=== PATIENT | female | born 1940 | race Caucasian/White ===

== ENCOUNTER 2019-11-18 14:52 | Inpatient (IN) | payer MEDICARE ==
[~2019-11-18] VITALS: Ht 165.1 cm; Wt 93.8 kg
--- NOTE | 2019-11-18 15:25 | NUR ---
Patient brought to ER room 9. She states she has had increased shortness of breath x 3 weeks and has had to sleep sitting up in a recliner at home. She states she has been checking her oxygen saturations at night and they have been running around 68%. She does not wear oxygen at home. She denies any exposures to covid. She states she has not left her house in over 3 weeks.
[2019-11-18] MEDS ORDERED: NS IV 500 ML 500 ML IV ONE (15:32)
[2019-11-18 15:45] LABS: BASOPHILS % (AUTO) 0 % (0-10); EOSINOPHILS # (AUTO) 0.3 10^3/uL (0.0-0.3); EOSINOPHILS % (AUTO) 4 % (0-10); HEMATOCRIT 40 % (35-52); HEMOGLOBIN 13.3 G/DL (11.5-16.0); LYMPHOCYTES % (AUTO) 13 % (12-44); MEAN CORPUSCULAR HEMOGLOBIN 31 PG (25-34); MEAN CORPUSCULAR HGB CONC 33 G/DL (32-36); MEAN CORPUSCULAR VOLUME 93 FL (80-99); MEAN PLATELET VOLUME 9.5 FL (7.4-10.4); MONOCYTES % (AUTO) 13 % (0-12); NEUTROPHILS # (AUTO) 5.5 X 10^3 (1.8-7.8); NEUTROPHILS % (AUTO) 70 % (42-75); PLATELET COUNT 220 10^3/uL (130-400); RED CELL DISTRIBUTION WIDTH 15.1 % (10.0-14.5); WHITE BLOOD COUNT 7.9 10^3/uL (4.3-11.0)
[2019-11-18 15:51] LABS: ALBUMIN 3.9 GM/DL (3.2-4.5); CHLORIDE 104 MMOL/L (98-107); POTASSIUM 3.7 MMOL/L (3.6-5.0); SODIUM 139 MMOL/L (135-145)
--- NOTE | 2019-11-18 15:51 | NUR ---
Patient's oxygen saturation initially was 74% on room air. Patient placed on 4 LPM via NC and oxygen saturation is now 98%.
[2019-11-18 15:52] LABS: CALCIUM 9.2 MG/DL (8.5-10.1)
[2019-11-18 15:53] LABS: GLUCOSE 122 MG/DL (70-105); TOTAL PROTEIN 7.4 GM/DL (6.4-8.2)
[2019-11-18] MEDS ORDERED: methylPREDNISolone 125 MG (Solu-MEDROL) VIAL IV STA (15:53)
[2019-11-18 15:54] LABS: CARBON DIOXIDE 23 MMOL/L (21-32); FIBRIN DEGRADATION PRODUCTS 0.87 UG/ML (0.00-0.49)
[2019-11-18 15:55] LABS: BILIRUBIN,TOTAL 1.1 MG/DL (0.1-1.0)
[2019-11-18 15:56] LABS: ALKALINE PHOSPHATASE 92 U/L (40-136)
[2019-11-18 15:57] LABS: CREATININE SERUM 0.82 MG/DL (0.60-1.30); GFR ESTIMATED > 60
[2019-11-18 15:58] LABS: BUN/CREATININE RATIO 16
[2019-11-18] MEDS ORDERED: RT-ALBUTEROL INHALER HFA (VENTOLIN HFA) 18 GM IH ONE (15:59)
[2019-11-18 16:00] LABS: ALANINE AMINOTRANSFERASE 13 U/L (0-55)
--- NOTE | 2019-11-18 16:29 | Diagnostic Imaging Report ---
INDICATION: Short of air. EXAMINATION: Upright portable chest was obtained. FINDINGS: Right upper lobe infiltrate. There may be a left lung infiltrate present as well. There is cardiomegaly with no failure. There is no effusion. A pacemaker is present. IMPRESSION: Bilateral infiltrates consistent with pneumonia. Recommend follow-up. Dictated by: Dictated on workstation # [id number]
[2019-11-18 17:42] LABS: BILIRUBIN,URINE NEGATIVE (NEGATIVE); CLARITY,URINE CLOUDY; COLOR,URINE YELLOW; GLUCOSE, URINE (UA) NEGATIVE (NEGATIVE); KETONES,URINE NEGATIVE (NEGATIVE); LEUKOCYTE ESTERASE ,URINE 1+ (NEGATIVE); NITRITE,URINE POSITIVE (NEGATIVE); PROTEIN,URINE 1+ (NEGATIVE)
[2019-11-18] MEDS ORDERED: CEFEPIME INJECTION 1,000 MG in WATER (STERILE) FOR INJECTION 10 ML IV ONE (17:45)
[2019-11-18] MEDS ORDERED: VANCOMYCIN INJECTION 1,000 MG in NS (IVPB) 250 ML IV ONE (17:45)
[2019-11-18 17:49] LABS: BACTERIA,URINE LARGE /HPF; WBC,URINE 25-50 /HPF
--- NOTE | 2019-11-18 17:51 | ED General ---
General Chief Complaint: Respiratory Problems Stated Complaint: SOB Nursing Triage Note: pt has copd checks o2 sats at home has been 70-80's recently with increased shortness of air and has to sleep sitting up. o2 81% on room air on arrival. onset aprox 1.5 2 weeks with increased soa last few day. Nursing Sepsis Screen: No Definite Risk Source of Information: Patient Exam Limitations: No Limitations History of Present Illness Date Seen by Provider: Nov 18, 2019 Time Seen by Provider: 15:25 Initial Comments Here with report of shortness of air home and worsening. States started 1-2 weeks ago and worsened over the last couple of days. Does have history of bronchiectasis and has history of pneumonia at least twice a year secondary to that. Moved here in August has not set up care with pulmonology. She is working on transferring care to Dr. Valdez who her sister sees. Has been using her inhalers and breathing treatments at home but not getting better. She is not currently on home O2. Was in the low 80s for O2 sat on arrival. States that she's been in the 70s and 80% range at home except for when she is sitting up. Denies nausea, vomiting or diarrhea. No contact with [employer] that she knows of and has stayed at home and not been out in the community due to concerns because of her lung disease. Timing/Duration: 1 Week, Getting Worse Severity: Moderate, Severe Associated Systoms: No Chest Pain; Cough, Fever/Chills; No Nausea/Vomiting; Shortness of Air, Weakness Allergies and Home Medications Allergies Coded Allergies: Rpelcln-Ced-Zkn Reductase Inhibitor (Verified Allergy, Unknown, 11/18/19) doxycycline (Verified Allergy, Unknown, 11/18/19) Patient Home Medication List Home Medication List Reviewed: Yes Review of Systems Review of Systems Constitutional: see HPI; No chills; fever, weakness EENTM: no symptoms reported Respiratory: cough, short of breath Cardiovascular: no symptoms reported Gastrointestinal: No abdominal pain, No nausea, No vomiting Genitourinary: no symptoms reported Musculoskeletal: no symptoms reported All Other Systems Reviewed Negative Unless Noted: Yes Past Pnrdcre-Athgdu-Sxjqlj Hx Past Med/Social Hx: Reviewed Nursing Past Med/Soc Hx Patient Social History Alcohol Use: Denies Use Recreational Drug Use: No Smoking Status: Unknown if Ever Smoked 2nd Hand Smoke Exposure: No Recent Foreign Travel: No Contact w/Someone Who Travel: No Recent Infectious Disease Expo: No Recent Hopitalizations: No Physical Abuse: No Sexual Abuse: No Mistreated: No Fear: No Seasonal Allergies Seasonal Allergies: No Past Medical History Surgeries: Yes (6 stents in heart, 2 stents in leg, pacemaker) Coronary Stent Respiratory: Yes Asthma, COPD Cardiac: Yes Coronary Artery Disease, High Cholesterol, Hypertension, Peripheral Vascular Neurological: No : No Genitourinary: No Gastrointestinal: No Musculoskeletal: No Endocrine: No HEENT: No Cancer: No Psychosocial: No Integumentary: No Family Medical History Reviewed Nursing Family Hx No Pertinent Family Hx Physical Exam-Suspected Sepsis Physical Exam Vital Signs Vital Signs - First Documented 11/18/19 11/18/19 11/18/19 15:15 15:25 15:29 Temp 37.2 Pulse 80 Resp 22 B/P (MAP) 175/77 (109) Pulse Ox 81 O2 Delivery Room Air O2 Flow Rate 4.00 Capillary Refill : Less Than 3 Seconds Blood Pressure Mean: 109 Height, Weight, BMI Height: '" Weight: lbs. oz. kg; BMI Method: General Appearance: No Apparent Distress, WD/WN HEENT: PERRL/EOMI, Pharynx Normal Neck: Non Tender, Supple Respiratory: Crackles (throughout but greater on the right than left), Wheezing (few with expiration) Cardiovascular: Regular Rate, Rhythm, No Murmur Gastrointestinal: Non Tender, Soft Back: Normal Inspection, No CVA Tenderness, No Vertebral Tenderness Extremity: Normal Range of Motion, Non Tender, No Calf Tenderness Neurologic/Psychiatric: Alert, Oriented x3, No Motor/Sensory Deficits Skin: normal color, warm/dry Focused Exam Lactate Level 11/18/19 15:31: Lactic Acid Level 0.73 Lactic Acid Level Laboratory Tests Test 11/18/19 15:31 Lactic Acid Level 0.73 MMOL/L (0.50-2.00) Progress/Results/Core Measures Suspected Sepsis Recent Fever Within 48 Hours: No Infection Criteria Present: None New/Unexplained Altered Menta: No Sepsis Screen: No Definite Risk SIRS Temperature: Pulse: 80 Respiratory Rate: 22 Laboratory Tests 11/18/19 15:31: White Blood Count 7.9 Blood Pressure 175 /77 Mean: 109 11/18/19 15:31: Lactic Acid Level 0.73 Laboratory Tests 11/18/19 15:31: Creatinine 0.82, INR Comment 1.0, Platelet Count 220, Total Bilirubin 1.1H Results/Orders Lab Results Laboratory Tests Test 11/18/19 15:31 11/18/19 17:36 Range/Units White Blood Count 7.9 4.3-11.0 10^3/uL Red Blood Count 4.34 L 4.35-5.85 10^6/uL Hemoglobin 13.3 11.5-16.0 G/DL Hematocrit 40 35-52 % Mean Corpuscular Volume 93 80-99 FL Mean Corpuscular Hemoglobin 31 25-34 PG Mean Corpuscular Hemoglobin Concent 33 32-36 G/DL Red Cell Distribution Width 15.1 H 10.0-14.5 % Platelet Count 220 130-400 10^3/uL Mean Platelet Volume 9.5 7.4-10.4 FL Neutrophils (%) (Auto) 70 42-75 % Lymphocytes (%) (Auto) 13 12-44 % Monocytes (%) (Auto) 13 H 0-12 % Eosinophils (%) (Auto) 4 0-10 % Basophils (%) (Auto) 0 0-10 % Neutrophils # (Auto) 5.5 1.8-7.8 X 10^3 Lymphocytes # (Auto) 1.0 1.0-4.0 X 10^3 Monocytes # (Auto) 1.0 0.0-1.0 X 10^3 Eosinophils # (Auto) 0.3 0.0-0.3 10^3/uL Basophils # (Auto) 0.0 0.0-0.1 10^3/uL Prothrombin Time 14.0 12.2-14.7 SEC INR Comment 1.0 0.8-1.4 Activated Partial Thromboplast Time 32 24-35 SEC D-Dimer 0.87 H 0.00-0.49 UG/ML Sodium Level 139 135-145 MMOL/L Potassium Level 3.7 3.6-5.0 MMOL/L Chloride Level 104 98-107 MMOL/L Carbon Dioxide Level 23 21-32 MMOL/L Anion Gap 12 5-14 MMOL/L Blood Urea Nitrogen 13 7-18 MG/DL Creatinine 0.82 0.60-1.30 MG/DL Estimat Glomerular Filtration Rate > 60 BUN/Creatinine Ratio 16 Glucose Level 122 H 70-105 MG/DL Lactic Acid Level 0.73 0.50-2.00 MMOL/L Calcium Level 9.2 8.5-10.1 MG/DL Corrected Calcium 9.3 8.5-10.1 MG/DL Total Bilirubin 1.1 H 0.1-1.0 MG/DL Aspartate Amino Transf (AST/SGOT) 22 5-34 U/L Alanine Aminotransferase (ALT/SGPT) 13 0-55 U/L Alkaline Phosphatase 92 40-136 U/L Troponin I < 0.028 <0.028 NG/ML Total Protein 7.4 6.4-8.2 GM/DL Albumin 3.9 3.2-4.5 GM/DL Urine Color YELLOW Urine Clarity CLOUDY Urine pH 6.0 5-9 Urine Specific Pearson 1.020 1.016-1.022 Urine Protein 1+ H NEGATIVE Urine Glucose (UA) NEGATIVE NEGATIVE Urine Ketones NEGATIVE NEGATIVE Urine Nitrite POSITIVE H NEGATIVE Urine Bilirubin NEGATIVE NEGATIVE Urine Urobilinogen 1.0 < = 1.0 MG/DL Urine Leukocyte Esterase 1+ H NEGATIVE Urine RBC (Auto) NEGATIVE NEGATIVE Urine RBC NONE /HPF Urine WBC 25-50 H /HPF Urine Squamous Epithelial Cells 5-10 /HPF Urine Crystals NONE /LPF Urine Bacteria LARGE H /HPF Urine Casts NONE /LPF Urine Mucus NEGATIVE /LPF Urine Culture Indicated CULTURE PENDING My Orders Orders - YASMIN ABDULLAHI MD Cbc With Automated Diff (11/18/19 15:32) Comprehensive Metabolic Panel (11/18/19 15:32) Blood Culture (11/18/19 15:32) Sputum Culture (11/18/19 15:32) Urinalysis (11/18/19 15:32) Urine Culture (11/18/19 15:32) Protime With Inr (11/18/19 15:32) Partial Thromboplastin Time (11/18/19 15:32) Chest 1 View, Ap/Pa Only (11/18/19 15:32) Ed Iv/Invasive Line Start (11/18/19 15:32) Ed Iv/Invasive Line Start (11/18/19 15:32) Ekg Tracing (11/18/19 15:32) Troponin I (11/18/19 15:32) Vital Signs Adult Sepsis Patie Q15M (11/18/19 15:32) O2 (11/18/19 15:32) Remove Rings In Anticipation O (11/18/19 15:32) Lactic Acid Analyzer (11/18/19 15:32) Ns Iv 500 Ml (Sodium Chloride 0.9%) (11/18/19 15:32) Fibrin Degradation Products (11/18/19 15:32) Methylprednisolone Sod Succ (Solu-Medrol (11/18/19 15:53) Albuterol Inhaler (Ventolin Hfa) (11/18/19 15:59) Cefepime Injection (Maxipime Injection) (11/18/19 17:45) Vancomycin Injection (Vancomycin Injecti (11/18/19 17:45) Medications Given in ED Current Medications Medications Dose Ordered Sig/Cheryl Route Start Time Stop Time Status Last Admin Dose Admin Albuterol Sulfate 18 gm STK-MED ONCE IH 11/18/19 15:59 11/18/19 16:03 DC 11/18/19 16:06 1 GM Cefepime HCl 1000 mg/Sterile Water 10 ml @ 200 mls/hr ONCE ONCE IV 11/18/19 17:45 11/18/19 17:47 DC 11/18/19 17:51 200 MLS/HR Sodium Chloride 500 ml @ 0 mls/hr Q0M ONCE IV 11/18/19 15:32 11/18/19 15:35 DC 11/18/19 15:56 1,000 MLS/HR Vital Signs/I&O 11/18/19 11/18/19 11/18/19 11/18/19 15:15 15:25 15:29 16:07 Temp 37.2 37.2 Pulse 80 80 Resp 22 22 B/P (MAP) 175/77 (109) Pulse Ox 81 98 96 O2 Delivery Room Air Nasal Cannula Nasal Cannula O2 Flow Rate 4.00 2.00 Capillary Refill : Less Than 3 Seconds Blood Pressure Mean: 109 Progress Note : Progress Note Seen and evaluated. Sepsis order set initiated. Normal saline 500 mL bolus. Solu-Medrol 125 mg IV given long history ordered as well as albuterol MDI multiple puffs. This did help along with the oxygen. Monitor patient. 1735: Bilateral pneumonia noted. X-ray. I did discuss all this with the patient. Patient to be admitted and patient agrees. I did discuss the case with Dr. Garcia and she agrees to admission, inpatient status. We will consult Dr. Valdez in the morning. Cefepime 1 g IV and vancomycin 1750 mg IV ordered and we will continue sepsis order set. Patient agrees with plan. ECG Initial ECG Impression Date: Nov 18, 2019 Initial ECG Impression Time: 15:43 Initial ECG Rate: 72 Initial ECG Rhythm: Normal Sinus Comment Sinus rhythm with LVH. No evidence of ST elevation OK. Leftward axis. No previous available for comparison. Interpreted by me. Diagnostic Imaging Diagonstic Imaging: Xray Plain Films/CT/US/NM/MRI: chest Comments [facility] [place], [place] NAME: DONALD PLASENCIA [facility] REC#: [id number] PT STATUS: REG ER : 1940 PHYSICIAN: YASMIN ABDULLAHI MD ADMIT DATE: 11/18/19/ER Signed Date of Exam:11/18/19 CHEST 1 VIEW, AP/PA ONLY INDICATION: Short of air. EXAMINATION: Upright portable chest was obtained. FINDINGS: Right upper lobe infiltrate. There may be a left lung infiltrate present as well. There is cardiomegaly with no failure. There is no effusion. A pacemaker is present. IMPRESSION: Bilateral infiltrates consistent with pneumonia. Recommend follow-up. Dictated by: Dictated on workstation # [id number] Dict: 11/18/19 1625 Trans: 11/18/19 1631 [facility] [id number] Interpreted by: SANDY SCHOFIELD MD Electronically signed by: SANDY SCHOFIELD MD 11/18/19 1631 Departure Communication (Admissions) Time/Spoke to Admitting Phy: 17:35 Impression Primary Impression: Bilateral pneumonia Qualified Codes: J18.9 - Pneumonia, unspecified organism Additional Impression: Bronchiectasis Qualified Codes: J47.1 - Bronchiectasis with (acute) exacerbation Disposition: ADMITTED INPATIENT Condition: Stable Admissions Decision to Admit Reason: Admit from ER (General) Decision to Admit/Date: Nov 18, 2019 Time/Decision to Admit Time: 17:35 YASMIN ABDULLAHI MD Nov 18, 2019 17:50
--- NOTE | 2019-11-18 18:23 | NUR ---
Attempted to call [facility] to give report. No answer. Will try back in a little bit.
[2019-11-18 18:52] VITALS: BP 169/81
--- NOTE | 2019-11-18 19:00 | NUR ---
DONALD LUIS ANGEL admitted to room 423-1, with an admitting diagnosis of BILATERAL PNEUMONIA AND BRONCHIECTASIS, on 11/18/19 from [facility] via W/C, accompanied by ED STAFF. DONADL PLASENCIA introduced to surroundings, call light, bed controls, phone, TV, temperature control, lights, meal times, smoking policy, visitor policy, side rail policy, bathrooms and showers. Patient Rights given to patient in the handbook. DONALD PLASENCIA verbalizes understanding that [facility] is not responsible for the loss or damage to any personal effects or valuables that are kept in the patients possession during their hospitalization. Patient was informed about the Rapid Response Team and its purpose.
[2019-11-18 20:22] VITALS: BP 169/81
[2019-11-18] MEDS ORDERED: CARVEDILOL 3.125 MG (COREG) TABLET PO ONE (22:30)
[2019-11-18] MEDS ORDERED: lisINopril 20 MG (PRINIVIL) TABLET PO ONE (22:30)
[2019-11-18 23:40] VITALS: BP 153/76
[2019-11-18] MEDS: methylPREDNISolone 40 MG/ML (Solu-MEDROL) VIAL IV SCH (23:40)
[2019-11-19] MEDS ORDERED: RT-ALBUINH IH (00:55)
[2019-11-19] MEDS ORDERED: ACET325T49 PO (00:55)
[2019-11-19] MEDS ORDERED: ALBU2.5V4 INH (00:58)
[2019-11-19] MEDS ORDERED: CARV25TA PO (01:23)
[2019-11-19] MEDS ORDERED: DILT360C36 PO (01:23)
[2019-11-19] MEDS ORDERED: ASPI-983 PO (01:23)
[2019-11-19] MEDS ORDERED: BUDE0.5A IH (01:23)
[2019-11-19] MEDS ORDERED: CLON0.1T PO (01:23)
[2019-11-19] MEDS ORDERED: NITR0.4T42 SL (01:23)
[2019-11-19] MEDS ORDERED: MULT-928 PO (01:23)
[2019-11-19] MEDS ORDERED: LISI-552 PO (01:23)
[2019-11-19] MEDS ORDERED: ISOS30TA3 PO (01:23)
[2019-11-19] MEDS ORDERED: CLOP75TA28 PO (01:23)
[2019-11-19] MEDS ORDERED: MULT-974 PO (01:23)
[2019-11-19] MEDS ORDERED: OMEP20TA7 PO (01:23)
[2019-11-19] MEDS ORDERED: ARFO15VI3 IH (01:23)
[2019-11-19] MEDS ORDERED: FURO40TA4 PO (01:23)
[2019-11-19 04:00] VITALS: BP 167/77
[2019-11-19] MEDS: CEFEPIME 1,000 MG/SWFI 10 ML IV PUSH IV SCH ×8 (04:44→22:21)
[2019-11-19 05:53] LABS: BASOPHILS % (AUTO) 0 % (0-10); EOSINOPHILS % (AUTO) 0 % (0-10); HEMATOCRIT 39 % (35-52); HEMOGLOBIN 12.9 G/DL (11.5-16.0); LYMPHOCYTES # (AUTO) 0.3 X 10^3 (1.0-4.0); LYMPHOCYTES % (AUTO) 8 % (12-44); MEAN CORPUSCULAR HEMOGLOBIN 30 PG (25-34); MEAN CORPUSCULAR HGB CONC 33 G/DL (32-36); MEAN CORPUSCULAR VOLUME 93 FL (80-99); MEAN PLATELET VOLUME 9.8 FL (7.4-10.4); MONOCYTES % (AUTO) 1 % (0-12); NEUTROPHILS # (AUTO) 3.7 X 10^3 (1.8-7.8); NEUTROPHILS % (AUTO) 92 % (42-75); PLATELET COUNT 185 10^3/uL (130-400); RED CELL DISTRIBUTION WIDTH 14.6 % (10.0-14.5)
[2019-11-19 06:13] LABS: ALANINE AMINOTRANSFERASE 13 U/L (0-55); ALBUMIN 3.6 GM/DL (3.2-4.5); ALKALINE PHOSPHATASE 83 U/L (40-136); BILIRUBIN,TOTAL 0.8 MG/DL (0.1-1.0); BUN/CREATININE RATIO 18; CALCIUM 9.3 MG/DL (8.5-10.1); CARBON DIOXIDE 24 MMOL/L (21-32); CHLORIDE 107 MMOL/L (98-107); CREATININE SERUM 0.74 MG/DL (0.60-1.30); GFR ESTIMATED > 60; GLUCOSE 165 MG/DL (70-105); POTASSIUM 3.9 MMOL/L (3.6-5.0); SODIUM 140 MMOL/L (135-145); TOTAL PROTEIN 6.9 GM/DL (6.4-8.2)
[2019-11-19 06:22] LABS: ANISOCYTOSIS SLIGHT; LYMPHOCYTES % (MANUAL) 8 %; NEUTROPHILS % (MANUAL) 92 %
[2019-11-19] MEDS: methylPREDNISolone 40 MG/ML (Solu-MEDROL) VIAL IV SCH ×3 (06:37→17:55)
[2019-11-19 08:00] VITALS: BP 155/88
[2019-11-19] MEDS ORDERED: VANCOMYCIN 1250 MG/NS 250 ML IVPB IV SCH ×2 (09:00)
[2019-11-19] MEDS: CARVEDILOL 12.5 MG (COREG) TABLET PO SCH ×2 (09:24→21:17)
[2019-11-19] MEDS: lisINopril 20 MG (PRINIVIL) TABLET PO SCH ×2 (09:24→21:17)
[2019-11-19] MEDS ORDERED: ACETAMINOPHEN 325 MG TABLET PO PRN (10:30)
[2019-11-19] MEDS ORDERED: NITROGLYCERIN 0.4 MG SL TABS BTL 25'S SL PRN (10:30)
[2019-11-19] MEDS ORDERED: cloNIDine 0.1 MG (CATAPRES) TAB PO PRN (10:30)
--- NOTE | 2019-11-19 10:37 | History & Physical-Hospitalist ---
History of Present Illness HPI/Chief Complaint Pt is an 79yoCF with a PMH of bronchiectasis, HTN, complete heart block s/p pacemaker, HTN who presented to the ER due to dyspnea on exertion. She states she has a long history of lung problems which she follows with a bicycle repairman in [facility]. She moved to [facility] in August. She states for the past 2-3 weeks she's had increasing shortness of breath and dyspnea on exertion. She states when she walks out to get the mail her oxygen saturations will drop down to the 60s. she has also developed some orthopnea and has needed to sleep in her recliner. Wednesday night she developed a cough and had been using her inhalers 4 times a day. She was planning to come to the emergency room yesterday morning but the story. She came in the afternoon and was found to have a pulse ox of 81 percent on arrival that dropped to 74 with walking to the ER room. She was found to have bilateral pneumonia and was admitted for IV abx due to hypoxia. She was also found to have a UTI. She has not been febrile and she has no sick contacts. Source: patient Date Seen 11/19/19 Time Seen by a Provider: 10:32 Attending Physician Renetta Garcia MD PCP Referring Physician Date of Admission Nov 18, 2019 at 17:41 Home Medications & Allergies Home Medications Reviewed patient Home Medication Reconciliation performed by pharmacy medication reconciliations clean room technician and/or nursing. Patients Allergies have been reviewed. Allergies Allergies Coded Allergies Grdoozw-Sql-Rut Reductase Inhibitor (Verified Allergy, Unknown, 11/18/19) doxycycline (Verified Allergy, Unknown, 11/18/19) Past Buefijs-Tpbxjg-Succzh Hx Past Med/Social Hx: Reviewed Nursing Past Med/Soc Hx Patient Social History Alcohol Use: Denies Use Recreational Drug Use: No Smoking Status: Unknown if Ever Smoked 2nd Hand Smoke Exposure: No Recent Foreign Travel: No Contact w/other who traveled: No Recent Hopitalizations: No Recent Infectious Disease Expo: No Immunizations Up To Date Date of Pneumonia Vaccine: Mar 22, 2018 Seasonal Allergies Seasonal Allergies: No Past Medical History Surgeries: Coronary Stent, Orthopedic CEA x2 bronchiectasis Cardiac: Coronary Artery Disease, High Cholesterol, Hypertension, Peripheral Vascular : No Family History Reviewed Nursing Family Hx No Pertinent Family Hx Review of Systems Constitutional: No chills, No fever Respiratory: cough, dyspnea on exertion, orthopnea Cardiovascular: No chest pain, No edema, No palpitations Gastrointestinal: No abdominal pain, No constipation, No diarrhea, No nausea, No vomiting Genitourinary: No dysuria; frequency, other (foul odor) Musculoskeletal: no symptoms reported Skin: no symptoms reported Psychiatric/Neurological: No Symptoms Reported Physical Exam Physical Exam Vital Signs Vital Signs - First Documented 11/18/19 11/18/19 11/18/19 15:15 15:25 15:29 Temp 37.2 Pulse 80 Resp 22 B/P (MAP) 175/77 (109) Pulse Ox 81 O2 Delivery Room Air O2 Flow Rate 4.00 Capillary Refill : Less Than 3 Seconds Height, Weight, BMI Height: '" Weight: lbs. oz. kg; 34.41 BMI Method: General Appearance: No Apparent Distress, WD/WN, Obese HEENT: PERRL/EOMI, Moist Mucous Membranes; No Scleral Icterus (L), No Scleral Icterus (R) Neck: Normal Inspection, Supple Respiratory: No Accessory Muscle Use, Decreased Breath Sounds; No Wheezing; Other (on 3lpm NC) Cardiovascular: Regular Rate, Rhythm, No Murmur Gastrointestinal: Normal Bowel Sounds, Non Tender, Soft Extremity: Normal Capillary Refill, No Calf Tenderness, No Pedal Edema Neurologic/Psychiatric: Alert, Oriented x3, Normal Mood/Affect Skin: Normal Color, Warm/Dry Results Results/Procedures Labs Laboratory Tests 11/18/19 15:31 11/19/19 05:10 11/19/19 05:30 Patient resulted labs reviewed. Imaging: Reviewed Imaging Report Imaging [facility], [place] NAME: DONALD PLASENCIA [facility] REC#: [id number] PT STATUS: REG ER : 1940 PHYSICIAN: YASMIN ABDULLAHI MD ADMIT DATE: 11/18/19/ER Signed Date of Exam:11/18/19 CHEST 1 VIEW, AP/PA ONLY INDICATION: Short of air. EXAMINATION: Upright portable chest was obtained. FINDINGS: Right upper lobe infiltrate. There may be a left lung infiltrate present as well. There is cardiomegaly with no failure. There is no effusion. A pacemaker is present. IMPRESSION: Bilateral infiltrates consistent with pneumonia. Recommend follow-up. Dictated by: Dictated on workstation # [id number] Dict: 11/18/19 1625 Trans: 11/18/19 1631 [facility] [id number] Interpreted by: SANDY SCHOFIELD MD Electronically signed by: SANDY SCHOFIELD MD 11/18/19 1631 Assessment/Plan Admission Diagnosis Acute hypoxic respiratory failure Bilateral PNA Bronchiectasis Not sepsis Continue on Vanc and Cefepime Can likely deescalate Vanc tomorrow Continue home pulm meds Continue Solu-medrol Echo ordered due to history of orthopnea UTI On abx as above Await cultures (e coli growing, sensitivities not available) CAD HTN CEA Continue home medications DVT ppx: Lovenox Clinical Quality Measures DVT/VTE Risk/Contraindication: Risk Factor Score Per Nursin RFS Level Per Nursing on Admit: 4+=Very High RENETTA GRACIA MD Nov 19, 2019 10:37
[2019-11-19] MEDS: ALBUTEROL/IPRATROP (COMBIVENT RESPIMAT) 4 GM INHALER IH SCH ×3 (11:01→21:10)
[2019-11-19] MEDS: ADVAIR HFA 115/21 MCG INHALER 8 GM IH SCH ×2 (11:01→21:59)
[2019-11-19 12:00] VITALS: BP 160/76
[2019-11-19] MEDS ORDERED: ARFORMOTEROL 15 MCG/2 ML (BROVANA) INH SOLUTIION IH SCH (13:00)
[2019-11-19] MEDS: ARFORMOTEROL 15 MCG/2 ML (BROVANA) INH SOLUTIION IH SCH ×2 (14:51→21:35)
[2019-11-19 15:30] VITALS: BP 194/81
--- NOTE | 2019-11-19 16:00 | NUR ---
B/P 194/81. CATAPRES 0.1 PO ORDERED FOR ELEVATED B/P.
[2019-11-19] MEDS: ENOXAPARIN 40 MG/0.4 ML (LOVENOX) SYR SQ SCH (16:05)
[2019-11-19 20:00] VITALS: BP 178/80
[2019-11-20] MEDS: methylPREDNISolone 40 MG/ML (Solu-MEDROL) VIAL IV SCH ×3 (00:02→11:07)
[2019-11-20] MEDS: ALBUTEROL/IPRATROP (COMBIVENT RESPIMAT) 4 GM INHALER IH SCH ×5 (00:33→21:56)
[2019-11-20 00:37] VITALS: BP 154/74
[2019-11-20] MEDS: CEFEPIME 1,000 MG/SWFI 10 ML IV PUSH IV SCH ×4 (04:27→09:38)
[2019-11-20 04:31] VITALS: BP 158/82
--- NOTE | 2019-11-20 07:30 | Pulmonary Consultation ---
History of Present Illness History of Present Illness Date Seen by Provider: Nov 20, 2019 Time Seen by Provider: 07:25 Date of Admission Allergies and Home Medications Allergies Coded Allergies: doxycycline (Verified Allergy, Unknown, 11/18/19) Zjxpvxo-Qls-Frm Reductase Inhibitor (Verified Adverse Reaction, Severe, myalgias, 11/19/19) Home Medications Acetaminophen 325 Mg Tablet, 650 MG PO Q6H PRN for PAIN-MILD (1-4), (Reported) Albuterol Sulfate 1 Puff Puff, 2 PUFF IH Q6H PRN for WHEEZING, (Reported) 1 PUFF = 90 MCG Albuterol Sulfate 2.5 Mg/3 Ml Vial.neb, 2.5 MG INH Q6H PRN for WHEEZING, (Reported) Arformoterol Tartrate 15 Mcg/2 Ml Vial.neb, 15 MCG IH QID, (Reported) Aspirin 81 Mg Tablet.dr, 81 MG PO DAILY, (Reported) Budesonide 0.5 Mg/2 Ml Ampul.neb, 0.5 MG IH BID, (Reported) Carvedilol 25 Mg Tablet, 25 MG PO BID, (Reported) Clonidine HCl 0.1 Mg Tablet, 0.1 MG PO NEEDED PRN for BLOOD PRESSURE, (Reported) Clopidogrel Bisulfate 75 Mg Tablet, 75 MG PO DAILY, (Reported) Diltiazem HCl 360 Mg Cap.er.24h, 420 MG PO DAILY, (Reported) Furosemide 40 Mg Tablet, 40 MG PO DAILY PRN, (Reported) Isosorbide Mononitrate 30 Mg Tab.er.24h, 90 MG PO DAILY, (Reported) Lisinopril 20 Mg Tablet, 20 MG PO BID, (Reported) Multivitamin 1 Each Tablet, 1 TAB PO DAILY, (Reported) Multivits,Stress Formula/Zinc 1 Each Tablet, 1 TAB PO DAILY, (Reported) Nitroglycerin 0.4 Mg Tab.subl, 0.4 MG SL PRN PRN for CHEST PAIN (ANGINA), (R eported) Omeprazole 20 Mg Tablet.dr, 20 MG PO DAILY, (Reported) Past Ddownbl-Jwoyts-Jsuwlx Hx Past Med/Social Hx: Reviewed Nursing Past Med/Soc Hx Patient Social History Alcohol Use: Denies Use Recreational Drug Use: No Smoking Status: Unknown if Ever Smoked 2nd Hand Smoke Exposure: No Recent Foreign Travel: No Contact w/Someone Who Travel: No Recent Infectious Disease Expo: No Recent Hopitalizations: No Physical Abuse: No Sexual Abuse: No Mistreated: No Fear: No Immunizations Up To Date Date of Pneumonia Vaccine: Mar 22, 2018 Seasonal Allergies Seasonal Allergies: No Past Medical History Surgeries: Yes (6 stents in heart, 2 stents in leg, pacemaker) Coronary Stent, Orthopedic Respiratory: Yes Asthma, COPD Cardiac: Yes Coronary Artery Disease, High Cholesterol, Hypertension, Peripheral Vascular Neurological: No : No Genitourinary: No Gastrointestinal: No Musculoskeletal: No Endocrine: No HEENT: No Cancer: No Psychosocial: No Integumentary: No Family Medical History Reviewed Nursing Family Hx No Pertinent Family Hx Sepsis Event Evaluation Height, Weight, BMI Height: '" Weight: lbs. oz. kg; 34.41 BMI Method: Exam Exam Vital Signs Date Time Temp Pulse Resp B/P (MAP) Pulse Ox O2 Delivery O2 Flow Rate FiO2 11/20/19 04:31 36.2 75 20 158/82 (107) 96 Nasal Cannula 3.00 11/20/19 00:37 36.2 79 20 154/74 (100) 95 Nasal Cannula 3.00 11/20/19 00:33 92 Nasal Cannula 3.00 11/19/19 21:59 92 Nasal Cannula 3.00 11/19/19 20:00 94 Nasal Cannula 3.00 11/19/19 20:00 36.0 80 20 178/80 (112) 96 Nasal Cannula 3.00 11/19/19 15:30 36.6 82 18 194/81 (118) 96 Nasal Cannula 3.00 11/19/19 14:56 95 Nasal Cannula 3.00 11/19/19 14:55 95 Nasal Cannula 3.00 11/19/19 12:00 35.9 83 20 160/76 (104) 92 Nasal Cannula 3.00 11/19/19 11:02 95 Nasal Cannula 3.00 11/19/19 11:01 95 Nasal Cannula 3.00 11/19/19 08:00 35.8 79 20 155/88 (110) 94 Nasal Cannula 3.00 11/19/19 08:00 92 Nasal Cannula 3.00 I & O 11/20/19 07:00 Intake Total 1912.5 ml Balance 1912.5 ml Height & Weight Height: '" Weight: lbs. oz. kg; 34.41 BMI Method: General Appearance: No Apparent Distress, WD/WN, Obese HEENT: PERRL/EOMI, Moist Mucous Membranes; No Scleral Icterus (L), No Scleral Icterus (R) Neck: Normal Inspection, Supple Respiratory: No Accessory Muscle Use, Decreased Breath Sounds; No Wheezing; Other (on 3lpm NC) Cardiovascular: Regular Rate, Rhythm, No Murmur Capillary Refill: Less Than 3 Seconds Extremity: Normal Capillary Refill, No Calf Tenderness, No Pedal Edema Neurologic/Psychiatric: Alert, Oriented x3, Normal Mood/Affect Skin: Normal Color, Warm/Dry Results Lab Laboratory Tests 11/18/19 15:31 11/19/19 05:10 11/19/19 05:30 Assessment/Plan Assessment/Plan Acute hypoxic respiratory failure -Repeat CXR and labs -Check Echo Bilateral PNA - Vanc and Cefepime -D/C Vanco Bronchiectasis Solu-medrol -SVNs -Out pt PFT UTI with Ecoli Continue Abx CAD HTN JACQUELINE DALLAS DO Nov 20, 2019 07:30
[2019-11-20 08:00] VITALS: BP 180/89
[2019-11-20] MEDS: lisINopril 20 MG (PRINIVIL) TABLET PO SCH ×2 (08:10→21:24)
[2019-11-20] MEDS: PANTOPRAZOLE 20 MG TABLET (PROTONIX) PO SCH (08:10)
[2019-11-20] MEDS: ASPIRIN E.C. 81 MG (ECOTRIN) TAB PO SCH (08:10)
[2019-11-20] MEDS: CARVEDILOL 12.5 MG (COREG) TABLET PO SCH ×2 (08:10→21:24)
[2019-11-20] MEDS: CLOPIDOGREL 75 MG (PLAVIX) TABLET PO SCH (08:11)
[2019-11-20] MEDS: ISOSORBIDE MONONITRATE 30 MG (IMDUR) TAB PO SCH (08:11)
[2019-11-20] MEDS: MULTIVIT W/MINERALS TAB (THERAGRAN M) PO SCH (08:11)
[2019-11-20] MEDS: dilTIAZem120 MG (CARDIZEM CD) CAP PO SCH (08:11)
[2019-11-20] MEDS: FUROSEMIDE 40 MG (LASIX) TAB PO SCH (08:11)
[2019-11-20 09:00] LABS: BASOPHILS % (AUTO) 0 % (0-10); EOSINOPHILS % (AUTO) 0 % (0-10); HEMATOCRIT 41 % (35-52); HEMOGLOBIN 13.1 G/DL (11.5-16.0); LYMPHOCYTES # (AUTO) 0.3 X 10^3 (1.0-4.0); LYMPHOCYTES % (AUTO) 3 % (12-44); MEAN CORPUSCULAR HEMOGLOBIN 30 PG (25-34); MEAN CORPUSCULAR HGB CONC 32 G/DL (32-36); MEAN CORPUSCULAR VOLUME 93 FL (80-99); MEAN PLATELET VOLUME 9.7 FL (7.4-10.4); MONOCYTES # (AUTO) 0.3 X 10^3 (0.0-1.0); MONOCYTES % (AUTO) 3 % (0-12); NEUTROPHILS # (AUTO) 11.7 X 10^3 (1.8-7.8); NEUTROPHILS % (AUTO) 95 % (42-75); PLATELET COUNT 203 10^3/uL (130-400); RED CELL DISTRIBUTION WIDTH 14.9 % (10.0-14.5); WHITE BLOOD COUNT 12.4 10^3/uL (4.3-11.0)
[2019-11-20] MEDS ORDERED: DILTIAZEM HCL 420 MG PO SCH (09:00)
[2019-11-20 09:12] LABS: ALBUMIN 3.6 GM/DL (3.2-4.5)
[2019-11-20 09:13] LABS: POTASSIUM 3.4 MMOL/L (3.6-5.0)
[2019-11-20 09:14] LABS: CALCIUM 8.7 MG/DL (8.5-10.1)
[2019-11-20 09:15] LABS: TOTAL PROTEIN 6.8 GM/DL (6.4-8.2)
--- NOTE | 2019-11-20 09:15 | Diagnostic Imaging Report ---
Single view chest. INDICATION: Shortness of breath. Comparison made with prior examination of 11/18/2019. FINDINGS: There is cardiomegaly. There is right perihilar pneumonia. Some venous congestion. Pacemaker overlies left hemithorax. No pneumothorax. IMPRESSION: Persistent right upper lobe and right perihilar pneumonia. Cardiomegaly and mild central pulmonary venous congestion. Dictated by: Dictated on workstation # [id number]
[2019-11-20 09:17] LABS: BILIRUBIN,TOTAL 0.5 MG/DL (0.1-1.0)
[2019-11-20 09:19] LABS: CREATININE SERUM 0.9 MG/DL (0.60-1.30)
[2019-11-20] MEDS ORDERED: SOD CHL GEL 0.5 OZ (AYR SALINE NASAL GEL) TUBE TOP PRN (10:00)
[2019-11-20] MEDS: ADVAIR HFA 115/21 MCG INHALER 8 GM IH SCH ×2 (10:15→19:54)
[2019-11-20] MEDS ORDERED: CEFDINIR 300 MG (OMNICEF) CAP PO ONE (11:30)
[2019-11-20 12:08] VITALS: BP 143/80
[2019-11-20] MEDS ORDERED: BUDE0.5A7 IH (12:43)
[2019-11-20] MEDS ORDERED: OMEP20CA18 PO (12:43)
[2019-11-20] MEDS ORDERED: [UNRECOGNIZED DRUG - CODE] PO (12:43)
[2019-11-20] MEDS ORDERED: OMEP20TA7 PO (12:43)
[2019-11-20] MEDS ORDERED: CARV12.53 PO (12:44)
--- NOTE | 2019-11-20 12:50 | NUR ---
I SPOKE WITH THE PATIENT, KRISTINE MAYERS IN [place], AND WENT THROUGH HER MED LIST THAT SHE BROUGHT FROM HOME TO HELP ME COMPLETE THIS MED REC. PATIENT SAID THAT SHE GETS PROAIR, PROVENTIL NEBS, BROVANA NEBS, AND PULMICORT NEBS FROM [facility]. PATIENT DOESN'T HAVE ANY CONTACT INFORMATION AND I WAS UNABLE TO GET INTO CONTACT WITH THEM. THIS IS WHY I AM UNABLE TO PROVIDE FILLED DATES. PATIENT STATES THAT SHE TAKES CARVEDILOL 25MG BID BUT I COULD NOT FIND ANY RECORD OF HER GETTING THAT PRESCRIPTION FROM ANY PHARMACY SHE PROVIDED. THE LAST TIME [facility] FILLED COREG WAS 12/30/2018 #180 90DS BUT IT WAS ONLY A 12.5MG. SHE SAID THAT HER DAUGHTER IS GOING TO BRING HER MEDICATIONS EITHER LATER TODAY OR TOMORROW AND IF SHE HAS HER 25MG CARVEDILOL BOTTLE WE WILL CHANGE THE MED REC ACCORDINGLY. FLAXSEED, FUROSEMIDE, POTASSIUM, TERAZOSIN AND KENALOG CREAM ARE ALL ON HER MED LIST IN HER CHART THAT SHE PROVIDED FROM HOME, BUT SHE SAYS THAT SHE IS NO LONGER TAKING THEM. CLONIDINE 0.1MG LAST FILLED 07/26/2019 #90 45DS NITROGLYCERIN TABLETS LAST FILLED 06/16/2019 #25 30DS OTC: ACETAMINOPHEN ASPIRIN MULTI-VITAMIN B COMPLEX
[2019-11-20] MEDS ORDERED: CEFD300C3 PO (13:14)
[2019-11-20] MEDS: ENOXAPARIN 40 MG/0.4 ML (LOVENOX) SYR SQ SCH (14:56)
[2019-11-20 15:30] VITALS: BP 135/81
--- NOTE | 2019-11-20 16:48 | NUR ---
PATIENT SAT ON ROOM AIR WAS 87 PATIENT PLACED BACK ON OXYGEN AND SAT CAME UP TO 94% RECOMMENDS 3 L/M OXYGEN CAUTIOUS Addendum: 11/20/19 at 1648 by ROSA MONTESINOS RT Amended: Links added.
[2019-11-20 20:00] VITALS: BP 169/79
--- NOTE | 2019-11-20 20:35 | Progress Note - Hospitalist ---
Subjective HPI/CC On Admission Date Seen by Provider: Nov 20, 2019 Time Seen by Provider: 09:20 Pt is an 79yoCF with a PMH of bronchiectasis, HTN, complete heart block s/p pacemaker, HTN who presented to the ER due to dyspnea on exertion. She states she has a long history of lung problems which she follows with a roller [facility] in [facility]. She moved to [facility] in August. She states for the past 2-3 weeks she's had increasing shortness of breath and dyspnea on exertion. She states when she walks out to get the mail her oxygen saturations will drop down to the 60s. she has also developed some orthopnea and has needed to sleep in her recliner. Wednesday night she developed a cough and had been using her inhalers 4 times a day. She was planning to come to the emergency room yesterday morning but the story. She came in the afternoon and was found to have a pulse ox of 81 percent on arrival that dropped to 74 with walking to the ER room. She was found to have bilateral pneumonia and was admitted for IV abx due to hypoxia. She was also found to have a UTI. She has not been febrile and she has no sick contacts. Subjective/Events-last exam she reports feeling better today. She still has a cough. She is still is producing sputum. She denies any fevers or chills. She denies any abdominal pain, nausea, or vomiting. She denies any chest pain. Focused Exam Lactate Level Objective Exam Vital Signs Vital Signs Date Time Temp Pulse Resp B/P (MAP) Pulse Ox O2 Delivery O2 Flow Rate FiO2 11/21/19 14:20 36.0 64 16 133/76 95 Nasal Cannula 11/21/19 12:00 3.00 Capillary Refill : Less Than 3 SecondsLess Than 3 Seconds General Appearance: No Apparent Distress, Obese Respiratory: Lungs Clear, Normal Breath Sounds, No Respiratory Distress Cardiovascular: Regular Rate, Rhythm, No Edema, No Murmur Gastrointestinal: Normal Bowel Sounds, Non Tender, Soft Extremity: Normal Inspection, Non Tender, No Pedal Edema Neurologic/Psychiatric: Alert, Oriented x3, No Motor/Sensory Deficits, Normal Mood/Affect Skin: Normal Color, Warm/Dry Results/Procedures Lab Patient resulted labs reviewed. Imaging: Reviewed Imaging Report Assessment/Plan Assessment and Plan Assess & Plan/Chief Complaint Acute hypoxic respiratory failure Bilateral PNA Bronchiectasis transition to Omnicef Continue home pulm meds transition to prednisone UTI continue Omnicef CAD HTN CEA Continue home medications DVT ppx: Lovenox Diagnosis/Problems Diagnosis/Problems (1) Acute and chronic respiratory failure with hypoxia Status: Acute (2) Pneumonia Status: Acute Qualifiers: Pneumonia type: due to unspecified organism Laterality: unspecified laterality Lung location: unspecified part of lung Qualified Codes: J18.9 - Pneumonia, unspecified organism (3) Bronchiectasis Status: Acute Qualifiers: Bronchiectasis type: with acute exacerbation Qualified Codes: J47.1 - Bronchiectasis with (acute) exacerbation Clinical Quality Measures DVT/VTE Risk/Contraindication: Risk Factor Score Per Nursin RFS Level Per Nursing on Admit: 4+=Very High MIKE MCDOWELL MD Nov 20, 2019 20:35
[2019-11-20] MEDS: CEFDINIR 300 MG (OMNICEF) CAP PO SCH (21:24)
[2019-11-21] VITALS: BP 159/70
[2019-11-21 04:00] VITALS: BP 129/64
[2019-11-21 05:16] VITALS: BP 129/64
[2019-11-21] MEDS ORDERED: KCL 20 MEQ TAB (K-DUR) PO NR (07:00)
[2019-11-21] MEDS ORDERED: predniSONE 20 MG TAB PO SCH (07:00)
--- NOTE | 2019-11-21 07:05 | Pulmonary Progress Note ---
Subjective Time Seen by a Provider: 07:01 Subjective/Events-last exam Pt appears to be doing better. Sepsis Event Evaluation Height, Weight, BMI Height: '" Weight: lbs. oz. kg; 34.41 BMI Method: Focused Exam Lactate Level 11/18/19 15:31: Lactic Acid Level 0.73 Exam Exam Vital Signs Date Time Temp Pulse Resp B/P (MAP) Pulse Ox O2 Delivery O2 Flow Rate FiO2 11/21/19 05:16 36.6 66 18 129/64 (85) 94 Nasal Cannula 3.00 11/21/19 04:00 36.6 66 14 129/64 (85) 94 Nasal Cannula 3.00 11/21/19 00:00 36.2 69 14 159/70 (99) 97 Nasal Cannula 3.00 11/20/19 21:57 91 Nasal Cannula 3.00 11/20/19 21:31 95 Nasal Cannula 3.00 11/20/19 20:00 36.5 63 18 169/79 (109) 95 Nasal Cannula 3.00 11/20/19 19:45 Nasal Cannula 3.00 11/20/19 16:47 93 3.00 11/20/19 15:30 36.5 62 18 135/81 (99) 95 Nasal Cannula 3.00 11/20/19 14:00 94 Nasal Cannula 3.00 11/20/19 12:08 36.8 67 20 143/80 (101) 93 Nasal Cannula 3.00 11/20/19 10:29 94 Nasal Cannula 3.00 11/20/19 10:29 94 Nasal Cannula 3.00 11/20/19 08:00 96 Nasal Cannula 3.00 11/20/19 08:00 36.2 84 20 180/89 (119) 96 Nasal Cannula 3.00 I & O 11/21/19 07:00 Intake Total 3165 ml Balance 3165 ml Height & Weight Height: '" Weight: lbs. oz. kg; 34.41 BMI Method: General Appearance: No Apparent Distress, WD/WN, Obese HEENT: PERRL/EOMI, Moist Mucous Membranes; No Scleral Icterus (L), No Scleral Icterus (R) Neck: Normal Inspection, Supple Respiratory: No Accessory Muscle Use, Decreased Breath Sounds; No Wheezing; Other (on 3lpm NC) Cardiovascular: Regular Rate, Rhythm, No Murmur Capillary Refill: Less Than 3 Seconds Extremity: Normal Capillary Refill, No Calf Tenderness, No Pedal Edema Neurologic/Psychiatric: Alert, Oriented x3, Normal Mood/Affect Skin: Normal Color, Warm/Dry Results Lab Laboratory Tests 11/20/19 08:50 Assessment/Plan Assessment/Plan Acute hypoxic respiratory failure - improving Bilateral PNA - Omnicef Bronchiectasis Prednisone -SVNs -Out pt PFT Diastolic CHF grade 1 -Lasix Hypokalemia -replace UTI with Ecoli Continue Abx CAD HTN JACQUELINE DALLAS DO Nov 21, 2019 07:05
[2019-11-21] MEDS: ADVAIR HFA 115/21 MCG INHALER 8 GM IH SCH (07:09)
[2019-11-21] MEDS: ALBUTEROL/IPRATROP (COMBIVENT RESPIMAT) 4 GM INHALER IH SCH ×2 (07:09→11:08)
[2019-11-21 08:00] VITALS: BP 162/86
[2019-11-21] MEDS: CARVEDILOL 12.5 MG (COREG) TABLET PO SCH (09:45)
[2019-11-21] MEDS: dilTIAZem120 MG (CARDIZEM CD) CAP PO SCH (09:45)
[2019-11-21] MEDS: MULTIVIT W/MINERALS TAB (THERAGRAN M) PO SCH (09:45)
[2019-11-21] MEDS: CEFDINIR 300 MG (OMNICEF) CAP PO SCH (09:45)
[2019-11-21] MEDS: PANTOPRAZOLE 20 MG TABLET (PROTONIX) PO SCH (09:46)
[2019-11-21] MEDS: ISOSORBIDE MONONITRATE 30 MG (IMDUR) TAB PO SCH (09:46)
[2019-11-21] MEDS: CLOPIDOGREL 75 MG (PLAVIX) TABLET PO SCH (09:46)
[2019-11-21] MEDS: FUROSEMIDE 40 MG (LASIX) TAB PO SCH ×2 (09:46→09:50)
[2019-11-21] MEDS: lisINopril 20 MG (PRINIVIL) TABLET PO SCH (09:46)
[2019-11-21] MEDS: ASPIRIN E.C. 81 MG (ECOTRIN) TAB PO SCH (09:46)
[2019-11-21] MEDS ORDERED: PRD10T PO (10:03)
--- NOTE | 2019-11-21 10:17 | NUR ---
CM/SS visited with patient's nurse to assist outreach and education social worker Jalil. The patient will discharge with new oxygen need. DME: The patient was provided with a patient preference form and chose [facility] in [place], [place]. The patient's nurse received a call to have further information sent to agency. CM/SS faxed face sheet, history and physical, oxygen script, O2 qualifiers, and insurance. They will contact this sw with a time of delivery.
--- NOTE | 2019-11-21 11:30 | NUR ---
CM/SS: Visited with pt as to plan for discharge Plan: Pt will return to her sisters home with new oxygen set up Summary: [employer] denied getting the oxygen as the address in the Medicare system did not match with the address pt is currently living at (sisters home in [place]) Pt reports she has [facility] out of [place] previously for nebulizer treatments. [facility] is contacted. They request the fax of the oxygen request and will obtain information from [facility] in order to fill the request for oxygen. Pt is ok with that. Pt would like to get information from [facility] as well. They are contacted and release of information is obtained so that she can have medical records sent to her new physicians that she is in the process of setting up. This worker will follow up.
[2019-11-21 12:00] VITALS: BP 178/80
--- NOTE | 2019-11-21 12:32 | Discharge Summary ---
Discharge Summary Hospital Course Was the Problem List Reviewed?: Yes Problems/Dx: (1) Pneumonia Status: Acute Qualifiers: Qualified Codes: J18.9 - Pneumonia, unspecified organism (2) Acute and chronic respiratory failure with hypoxia Status: Acute (3) Bronchiectasis Status: Acute Qualifiers: Qualified Codes: J47.1 - Bronchiectasis with (acute) exacerbation Hospital Course Date of Admission: Nov 18, 2019 at 17:41 Admission Diagnosis : acute respiratory failure with hypoxia Family Physician/Provider: Date of Discharge: 11/21/19 Discharge Diagnosis: and acute and chronic respiratory failure with hypoxia, pneumonia, bronchiectasis Hospital Course: Tali Porras is an 79-year-old female with past medical history of br onchiectasis who presented with shortness of breath. She had been having low oxygen saturations at home. Upon arrival, she was found to have a pneumonia. She was treated with IV antibiotics and then transitioned to oral Omnicef on discharge. She required supplemental oxygen throughout her hospital stay and was discharged on 3 L continuously. She was discharged with a prednisone taper. She will establish care with Dr. Valdez for pulmonology. She will establish care with Dr. Jang as her primary care physician. Labs and Pending Lab Test: Microbiology 11/18/19 Urine Culture - Preliminary, Resulted Escherichia coli Aerococcus urinae 11/18/19 Blood Culture - Preliminary, Resulted No growth Home Meds Active Prednisone 10 Mg Tab 30 Mg PO DAILY 6 Days TAKE 30 MG X 2 DAYS, THEN 20 MG X 2 DAYS, THEN 10 MG X 2 DAYS, THEN STOP. Cefdinir 300 Mg Capsule 300 Mg PO BID 7 Days Reported Carvedilol 12.5 Mg Tablet 12.5 Mg PO BID Omeprazole 20 Mg Tablet.dr 20 Mg PO DAILY PATIENT DOES NOT GET IN THE [place] Pulmicort (Budesonide) 0.5 Mg/2 Ml Ampul.neb 0.5 Mg IH BID PRN Tiazac (Diltiazem HCl) 420 Mg Capsule.er 420 Mg PO DAILY Nitroglycerin 0.4 Mg Tab.subl 0.4 Mg SL PRN PRN Multi-Vitamin Daily (Multivitamin) 1 Each Tablet 1 Tab PO DAILY Lisinopril 20 Mg Tablet 20 Mg PO BID Isosorbide Mononitrate ER (Isosorbide Mononitrate) 30 Mg Tab.er.24h 90 Mg PO DAILY TAKES 3 (30MG) TABLETS Clopidogrel (Clopidogrel Bisulfate) 75 Mg Tablet 75 Mg PO DAILY Clonidine HCl 0.1 Mg Tablet 0.1 Mg PO NEEDED PRN Budesonide 0.5 Mg/2 Ml Ampul.neb 0.5 Mg IH BID PRN Stress B with Zinc Tablet (Multivits,Stress Formula/Zinc) 1 Each Tablet 1 Tab PO DAILY Aspirin EC (Aspirin) 81 Mg Tablet.dr 81 Mg PO DAILY Brovana (Arformoterol Tartrate) 15 Mcg/2 Ml Vial.neb 15 Mcg IH QID PRN Albuterol Sulfate 2.5 Mg/3 Ml Vial.neb 2.5 Mg INH Q6H PRN Proair Hfa (Albuterol Sulfate) 1 Puff Puff 2 Puff IH Q6H PRN 1 PUFF = 90 MCG Acetaminophen 325 Mg Tablet 650 Mg PO Q6H PRN Assessment/Pt Instructions take medications as prescribed. Establish care with Dr. Jang. He have a follow-up scheduled with Dr. Valdez. Discharge Planning: >30 minutes discharge planning Discharge Instructions Discharge Diet: No Restrictions Activity as Tolerated: Yes Consultations Pulmonology Discharge Physical Examination Vital Signs Vital Signs Date Time Temp Pulse Resp B/P (MAP) Pulse Ox O2 Delivery O2 Flow Rate FiO2 11/21/19 11:08 95 Nasal Cannula 3.00 11/21/19 08:00 36.0 66 16 162/86 (111) General Appearance: No Apparent Distress, Anxious, Obese HEENT: PERRL/EOMI, Pharynx Normal Respiratory: Lungs Clear, Normal Breath Sounds, No Respiratory Distress Cardiovascular: Regular Rate, Rhythm, No Edema, No Murmur Gastrointestinal: Normal Bowel Sounds, Non Tender, Soft Extremity: Normal Inspection, Non Tender, No Pedal Edema Skin: Normal Color, Warm/Dry Neurologic/Psychiatric: Alert, Oriented x3, No Motor/Sensory Deficits, Normal Mood/Affect Allergies: Coded Allergies: doxycycline (Verified Allergy, Unknown, 11/18/19) [id number]-[id number]-Aeu Reductase Inhibitor (Verified Adverse Reaction, Severe, myalgias, 11/19/19) Copy Copies To 1: YARIEL JANG DO Copies To 2: JACQUELINE VALDEZ DO Discharge Summary Date of Admission Nov 18, 2019 at 17:41 Date of Discharge Discharge Date: Nov 21, 2019 Discharge Time: 14:00 Admission Diagnosis acute and chronic respiratory failure with hypoxia, pneumonia, bronchiectasis Consults/Procedures Consulations pulmonology Discharge Diagnosis (1) Acute and chronic respiratory failure with hypoxia Status: Acute (2) Pneumonia Status: Acute Qualifiers: Qualified Codes: J18.9 - Pneumonia, unspecified organism (3) Bronchiectasis Status: Acute Qualifiers: Qualified Codes: J47.1 - Bronchiectasis with (acute) exacerbation Clinical Quality Measures DVT/VTE Risk/Contraindication: Risk Factor Score Per Nursin RFS Level Per Nursing on Admit: 4+=Very High MIKE MCDOWELL MD Nov 21, 2019 12:32
[2019-11-21 14:20] VITALS: BP 133/76
== END 2019-11-21 14:20 | disposition home or self-care (01) | DRG 193 ==
LOC: ER 14:54 → 4TH 17:41
PROVIDERS: ADMIT Family Medicine; ATTEND Internal Medicine
DX: J18.9 Pneumonia, unspecified organism (principal); J96.01 Acute respiratory failure with hypoxia; J47.0 Bronchiectasis with acute lower respiratory infection; N39.0 Urinary tract infection, site not specified; I50.30 Unspecified diastolic (congestive) heart failure; B96.20 Unspecified Escherichia coli [E. coli] as the cause of diseases classified elsewhere; I11.0 Hypertensive heart disease with heart failure; E87.6 Hypokalemia; I25.10 Atherosclerotic heart disease of native coronary artery without angina pectoris; E66.9 Obesity, unspecified; E78.00 Pure hypercholesterolemia, unspecified; I73.9 Peripheral vascular disease, unspecified; Z68.34 Body mass index [BMI] 34.0-34.9, adult; Z95.0 Presence of cardiac pacemaker; Z95.5 Presence of coronary angioplasty implant and graft; Z95.820 Peripheral vascular angioplasty status with implants and grafts
CPT/HCPCS: 36415; 71045; 80053; 81000; 83605; 83880; 84145; 84484; 85007; 85025; 85027; 85379; 85610; 85730; 86141; 87040; 87077; 87088; 93005; 93306; 94640; 94760; 94761

== ENCOUNTER → 2019-12-28 | Outpatient (CLI) | payer MEDICARE ==
[~2019-12-28] MED LIST: ACET325T49 PO; ALBU2.5V4 INH; ARFO15VI3 IH; ASPI-1238 PO; BUDE0.5A IH; BUDE0.5A7 IH; CARV12.53 PO; CARV25TA PO; CEFD300C3 PO; CLON0.1T PO; CLOP75TA28 PO; DILT360C36 PO; FURO40TA4 PO; HOLD METFORMIN - RECEIVED CONTRAST 20 ML VIAL IV SCH; IOHEXOL 350 MG/ML 100 ML (OMNIPAQUE 350) VIAL IV ONE; ISOS30TA3 PO; LISI-552 PO; MULT-928 PO; MULT-974 PO; NITR0.4T42 SL; NS 100 ML (IVPB) BAG IV ONE; OMEP20CA18 PO; OMEP20TA7 PO; PRD10T PO; RT-ALBUINH IH; [UNRECOGNIZED DRUG - CODE] PO
[2019-12-28 12:39] LABS: BUN/CREATININE RATIO 16; CREATININE SERUM 0.76 MG/DL (0.60-1.30); GFR ESTIMATED > 60
--- NOTE | 2019-12-28 16:19 | Diagnostic Imaging Report ---
CT CHEST W TECHNIQUE: Multiple contiguous axial images were obtained through the chest with the use of intravenous contrast. All CT scans use one or more of the following dose optimizing techniques: automated exposure control, MA and/or KvP adjustment based on a patient size and exam type, or iterative reconstruction. INDICATION: COPD, pneumonia follow-up. COMPARISON: Chest radiograph from 11/20/2019. FINDINGS: Lungs and airway: No endoluminal nodule within the trachea. Mosaic attenuation is present throughout both lungs. In the right upper lobe, there are mixed groundglass opacities with some scattered residual consolidations. In the bilateral lower lobes, some mild bronchiectasis is noted and on the right there is some minimal stack subpleural cystic change. Pleura: No pleural effusion or pneumothorax. Heart and mediastinum: Thyroid is normal. No supraclavicular or axillary lymphadenopathy. Enlarged right hilar lymph nodes are present with the largest conglomeration measuring approximately 2.2 x 1.4 cm. There are a few subcentimeter paratracheal lymph nodes. No left hilar lymphadenopathy. No juxtaphrenic lymphadenopathy. Heart is enlarged without pericardial effusion. No central pulmonary emboli. Coronary artery calcifications are present. Left pectoral transvenous pacemaker has leads in the right atrium and right ventricle. Upper abdomen: Cholelithiasis. Low-attenuation lesion in the liver measuring 1.5 x 1.5 cm is incompletely characterized but most likely a cyst. Musculoskeletal: No worrisome focal osseous lesions. IMPRESSION: 1. Probable resolving pneumonia in the right upper lobe. Right hilar lymphadenopathy is potentially reactive in nature. Continued follow-up with an additional CT chest with IV contrast in three months is advised for reassessment. 2. Potential early pulmonary fibrosis in the right lung base with multiple areas of bronchiectasis in the lung bases. This may represent interstitial lung disease. Attention on follow-up is suggested. 3. Mosaic attenuation would be in keeping with small airways disease. Dictated by: Dictated on workstation # [id number]
== END ==
LOC: RAD 13:15
PROVIDERS: ATTEND Nurse Practitioner Family
DX: J44.9 Chronic obstructive pulmonary disease, unspecified (principal); J18.9 Pneumonia, unspecified organism; J30.9 Allergic rhinitis, unspecified; J84.10 Pulmonary fibrosis, unspecified
CPT/HCPCS: 36415; 71260; 82565; 84520

== ENCOUNTER 2020-01-29 13:00 | Outpatient (CLI) | payer MEDICARE ==
[~2020-01-29 13:00] MED LIST changes: +CLN.1T PO; -CLON0.1T PO; -HOLD METFORMIN - RECEIVED CONTRAST 20 ML VIAL IV SCH; -IOHEXOL 350 MG/ML 100 ML (OMNIPAQUE 350) VIAL IV ONE; -NS 100 ML (IVPB) BAG IV ONE; +RT-ALBUTEROL SULF 2.5 MG/3 ML PRE-MIX VIAL INH ONE
[2020-01-29] MEDS ORDERED: RT-ALBUTEROL SULF 2.5 MG/3 ML PRE-MIX VIAL INH ONE (13:30)
== END 2020-01-29 14:15 | disposition home or self-care (01) ==
LOC: RT 13:00
PROVIDERS: ATTEND Nurse Practitioner Family
DX: J18.9 Pneumonia, unspecified organism (principal); J44.9 Chronic obstructive pulmonary disease, unspecified; J30.9 Allergic rhinitis, unspecified; G47.10 Hypersomnia, unspecified
CPT/HCPCS: 94060; 94726; 94729; G0399